=== PATIENT | male | born 1995 | race Two or more races ===

== ENCOUNTER 2021-09-25 11:30 | Emergency (ER) | payer SELFPAY ==
[~2021-09-25] VITALS: Ht 170.2 cm; Wt 64.4 kg
[2021-09-25 11:32] VITALS: BP 129/78
--- NOTE | 2021-09-25 11:35 | NUR ---
SEEN BY ER MD AT BEDSIDE
--- NOTE | 2021-09-25 11:35 | NUR ---
[id number] FROM STREETS, C/O ABDOMINAL PAIN, NO N/V. ADMITS TO METH USE, PATIENT APPEARS RESTLESS. PLACED COMFORTABLY IN BED. VITALS CHECKED.
--- NOTE | 2021-09-25 11:55 | NUR ---
PATIENT REFUSED TO COOPERATE AND WANTS TO LEAVE. REFUSED BLOOD DRAWS 3X. MAIA GOLDSTEIN MADE AWARE.
[2021-09-25] MEDS ORDERED: LORAZEPAM 1 MG TABLET PO ONE (12:00)
[2021-09-25] MEDS ORDERED: OLANZAPINE 5 MG TABLET PO ONE (12:00)
--- NOTE | 2021-09-25 12:30 | NUR ---
Patient does not wish to proceed with medical care recommended by Dr. NESS. Patient given information related to possible complications, up to and including , which could occur as a result of leaving the hospital at this time. Patient verbalizes understanding of risks involved due to leaving against medical advice. Patient refused to sign AMA form.
== END 2021-09-25 12:36 | disposition left against medical advice (07) ==
LOC: ER 11:31
DX: F15.10 Other stimulant abuse, uncomplicated (principal)